=== PATIENT | male | born 1990 | race Caucasian/White ===

== ENCOUNTER 2020-01-28 02:57 | Emergency (ER) | payer BC, OTHER ==
[2020-01-28] MEDS ORDERED: LORazepam 1 MG Tab PO ONE (03:19)
--- NOTE | 2020-01-28 03:27 | EDM.PDOCBH ---
ED HPI GENERAL MEDICAL PROBLEM - General Chief Complaint: Behavioral/Psych Stated Complaint: Anxiety Time Seen by Provider: 01/28/20 03:15 Source of Information: Reports: Patient History Limitations: Reports: No Limitations - History of Present Illness INITIAL COMMENTS - FREE TEXT/NARRATIVE: Patient comes emergency department today with complaints of shaking and anxiety. 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 He has been struggling with anxiety for the past 6 months. He has been seeing a chiropractor who is been giving him a lot of vitamins to help with his anxiety. He did a full body cleanse tonight that was prescribed by the chiropractor for the "parasites" that are in his body. That is the only difference today that he can identify. He has had panic attacks quite aggressively over the past 6 months. This is a very similar presentation to his panic attacks although it is much more exaggerated than it has been in the past. He denies any fever or chills. No chest pain no shortness of breath or difficulty breathing. No abdominal pain nausea or vomiting. He did have some loose stools tonight but that was to be expected with a cleanse that he is doing for the parasites that he was diagnosed with from his chiropractor. He has been struggling with loss of bladder control as well as urinary frequency and urge of urination. He has some intermittent dysuria no hematuria. He does have a decreased sex drive. He has no pain with defecation. No pain with ejaculation. 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 He was also told by his Chiropractor that he has chronic strep throat for which he takes a homeopathic supplement for. He has no sore throat fever. - Related Data Allergies Allergy/AdvReac Type Severity Reaction Status Date / Time No Known Allergies Allergy Verified 07/01/14 21:57 Home Meds: Home Meds . [No Known Home Meds] 01/28/20 [History] ED ROS GENERAL - Review of Systems Review Of Systems: Comprehensive ROS is negative, except as noted in HPI. ED EXAM, BEHAVIORAL HEALTH - Physical Exam Exam: See Below Exam Limited By: No Limitations General Appearance: Alert, WD/WN, Anxious Eye Exam: Bilateral Eye: EOMI, Normal Inspection Ears: Normal External Exam, Normal Canal, Normal TMs Nose: Normal Inspection, Normal Mucosa Throat/Mouth: Normal Inspection, Normal Lips, Normal Teeth, Normal Gums, Normal Oropharynx, Normal Voice Head: Atraumatic, Normocephalic Neck: Normal Inspection, Supple. No: Lymphadenopathy (L), Lymphadenopathy (R) Respiratory/Chest: No Respiratory Distress, Lungs Clear, Normal Breath Sounds, No Accessory Muscle Use, Chest Non-Tender Cardiovascular: Normal Peripheral Pulses, Regular Rate, Rhythm GI/Abdominal: Normal Bowel Sounds, Soft, Non-Tender (Male) Exam: Deferred Rectal (Males) Exam: Deferred Back Exam: Normal Inspection Extremities: Normal Inspection, Normal Range of Motion, Non-Tender, No Pedal Edema, Normal Capillary Refill Neurological: Alert, Normal Mood/Affect, Normal Cognition, Normal Reflexes, No Motor/Sensory Deficits Psychiatric: Alert, Restless, Other (anxious) Skin Exam: Warm, Dry, Intact COURSE, BEHAVIORAL HEALTH COMP - Course Vital Signs: Last Vital Signs Temp 37.2 C 01/28/20 03:00 Pulse 103 H 01/28/20 03:00 Resp 18 01/28/20 03:00 BP 170/84 H 01/28/20 03:00 Pulse Ox 100 01/28/20 03:00 Orders, Labs, Meds: Active Orders 24 hr Category Date Time Status UA W/O MICR POC [POC] Stat Lab 01/28/20 03:32 Ordered Medications Discontinued Medications Generic Name Dose Route Start Last Admin Trade Name Freq PRN Reason Stop Dose Admin Lorazepam 1 mg 01/28/20 03:19 01/28/20 03:24 Ativan PO 01/28/20 03:20 1 mg ONETIME ONE Administration Re-Assessment/Re-Exam: Lorazepam 1 mg PO. UA is negative for infectious process or other concerns. His shaking resolved and he feels back to normal. We spoke about medication therapy is not always the answer and that counseling is a prime treatment for anxiety. He is working with multiple homeopathic providers for multiple different concerns. With this multiple providers and multiple supplements I also have concerns for interactions of these treatments worsening his anxiety. Have a good discussion with your homeopathic provider to ensure no interactions of these medication. For now try hydroxyzine 1 tablet tid prn anxiety. He is comfortable with this plan and his questions answered. Departure - Departure Time of Disposition: 04:22 Disposition: Home, Self-Care 01 Clinical Impression: Panic attack - Discharge Information Instructions: Panic Attack, [id number] Forms: ED Department Discharge Additional Instructions: Consider counseling this is a great way to work with and identify lifes issues. Make sure and exercise and find outlets for your stressors in your life. Have a good sleep hygiene program. If the above is not helping. Hydroxyzine 1 tablet three times a day as needed for anxiety. Caution sedation. Okay for work with this medication. Return to the ED if new or worsening symptoms. Follow up with PCP in the next week if not improving and consider other continuous churn buttermaker management strategies. Sepsis Event Note - Focused Exam Vital Signs: Vital Signs Temp Pulse Resp BP Pulse Ox 01/28/20 03:00 37.2 C 103 H 18 170/84 H 100 Date Exam was Performed: 01/28/20 Time Exam was Performed: : - My Orders Last 24 Hours: My Active Orders 01/28/20 03:32 UA W/O MICR POC [POC] Stat - Assessment/Plan Last 24 Hours: My Active Orders 01/28/20 03:32 UA W/O MICR POC [POC] Stat Assessment:: Panic attack. Plan: Consider counseling this is a great way to work with and identify lifes issues. Make sure and exercise and find outlets for your stressors in your life. Have a good sleep hygiene program. If the above is not helping. Hydroxyzine 1 tablet three times a day as needed for anxiety. Caution sedation. Okay for work with this medication. Return to the ED if new or worsening symptoms. Follow up with PCP in the next week if not improving and consider other continuous churn buttermaker management strategies.
== END 2020-01-28 04:30 | disposition home or self-care (01) ==
LOC: VM.ED 02:57
DX: F41.0 Panic disorder [episodic paroxysmal anxiety] (principal)
CPT/HCPCS: 81002; 99283; 99283-GF; A9270-GY